=== PATIENT | male | born 1975 | race Caucasian/White ===

== ENCOUNTER 2016-08-20 10:33 | Emergency (ER) | payer SELFPAY ==
[~2016-08-20] VITALS: Ht 175.3 cm; Wt 77.2 kg
[2016-08-20 10:35] VITALS: BP 137/78; PULSE 82; RESP 20; TEMP 98.3; O2SAT 97
[2016-08-20] MEDS ORDERED: MOTR200T4 PO (11:08)
--- NOTE | 2016-08-20 11:08 | PD ---
HPI Chief Complaint: Altered Mental Status Time Seen by Provider: 11:03 Travel History International Travel<30 days: No Contact w/Intl Traveler<30days: No Traveled to known affect area: No History of Present Illness HPI 41-year-old male presents to the ER today because he states that he is from [facility] and is stuck here because his took a truck back, has been walking around and has blisters on his feet. He is here for foot pain bilaterally. He denies any other issues. He states he just wants to get back to [facility]. Modifying Factors: None Associated Signs & Symptoms: Foot blisters, bilateral feet pain Risk Factors: None PFSH Past Medical History Medical other: Yes (traumatic brain injury) Social History Alcohol Use: No Tobacco Use: Yes Substance Use: No Allergies-Medications (Allergen,Severity, Reaction): Coded Allergies: No Known Allergies (Unverified , 08/20/16) Reported Meds & Prescriptions Reported Meds & Active Scripts Active No Active Prescriptions or Reported Medications Review of Systems Except as stated in HPI: all other systems reviewed are Neg Physical Exam Narrative GENERAL: Well-developed middle age white male patient currently in mild distress. Awake and oriented 3. SKIN: Focused skin assessment warm/dry. HEAD: Atraumatic. Normocephalic. EYES: Pupils equal and round. No scleral icterus. No injection or drainage. ENT: No nasal bleeding or discharge. Mucous membranes pink and moist. NECK: Trachea midline. No JVD. CARDIOVASCULAR: Regular rate and rhythm. No murmur appreciated. RESPIRATORY: No accessory muscle use. Clear to auscultation. Breath sounds equal bilaterally. GASTROINTESTINAL: Abdomen soft, non-tender, nondistended. Hepatic and splenic margins not palpable. MUSCULOSKELETAL: No obvious deformities. No clubbing. No cyanosis. No edema. EXTREMITIES: No clubbing, cyanosis, or edema. No joint tenderness, effusion, or edema noted. 1 cm clean base blisters at the fifth toes bilaterally with no surrounding erythema, mild tenderness to palpation. NEUROLOGICAL: Awake and alert. No obvious cranial nerve deficits. Motor grossly within normal limits. Normal speech. PSYCHIATRIC: Mildly agitated mood and affect; insight and judgment normal. Data Data Last Documented VS Vital Signs Date Time Temp Pulse Resp B/P Pulse Ox O2 Delivery O2 Flow Rate FiO2 08/20/16 10:35 98.3 82 20 137/78 97 Room Air Orders Ibuprofen (Motrin) (08/20/16 11:15) MDM Medical Decision Making Medical Screen Exam Complete: Yes Emergency Medical Condition: Yes Medical Record Reviewed: Yes Differential Diagnosis Foot blisters/foot pain Narrative Course There are no signs of infection of these blisters. Patient is oriented, is just agitated that his left him here. This point, my plan would be to release him with additional soft, and ibuprofen. He was provided with a phone call to his . Follow-up as needed for this issue. The plan was discussed with him and he states understanding. Diagnosis Primary Impression: Blister of foot without infection Med/Other Pt SpecificInfo: Prescription(s) given Scripts Ibuprofen (Motrin Ib)200 Mg Xpg001 Mg PO Q6H PRN (PAIN SCALE 1 TO 10) #30 TAB Ref 0 Prov:Jovana Parker MD 08/20/16 Disposition: 01 DISCHARGE HOME Condition: Stable Jovana Parker MD August 20, 2016 11:08
[2016-08-20 11:13] VITALS: BP 128/68; PULSE 72; RESP 16; O2SAT 99
[2016-08-20] MEDS ORDERED: IBUPROFEN 600 MG TAB PO ONE (11:15)
== END 2016-08-20 11:32 | disposition home or self-care (01) ==
LOC: NEPD 10:33
DX: S90.822A Blister (nonthermal), left foot, initial encounter (principal); S90.821A Blister (nonthermal), right foot, initial encounter; X58.XXXA Exposure to other specified factors, initial encounter; Y93.01 Activity, walking, marching and hiking
CPT/HCPCS: 99283

== ENCOUNTER 2017-01-22 20:43 | Emergency (ER) | payer SELFPAY ==
[~2017-01-22] VITALS: Ht 175.3 cm; Wt 76.0 kg
[~2017-01-22 20:43] MED LIST: MOTR200T4 PO
[2017-01-22] MEDS ORDERED: ACETAMINOPHEN/HYDROcodone 325 MG/10 MG TAB PO ONE (21:30)
[2017-01-22] MEDS ORDERED: TETANUS/DIPHTHERIA TOXOID ADULT 0.5 ML VIAL IM ONE (21:30)
[2017-01-22] MEDS ORDERED: BUPIVACAINE HCL PF 0.5% 10 ML VIAL INFIL ONE (21:30)
[2017-01-22] MEDS ORDERED: LIDOCAINE HCL 1% 50 ML VIAL INFIL ONE (21:30)
--- NOTE | 2017-01-22 21:56 | PD ---
HPI Chief Complaint: Injury Time Seen by Provider: 21:28 Travel History International Travel<30 days: No Contact w/Intl Traveler<30days: No Traveled to known affect area: No History of Present Illness HPI 41-year-old male that presents to the ED for evaluation of injury to both of his first digits of both hands. Per patient he was doing laundry and she slipped on wet floor. Patient did not hit his head. Patient try to stop his fall with both of his hands and he injured both of his first digit. Patient has a superficial laceration to the right first digit and states that he cannot completely flex it secondary to pain. Patient also has deformity to the left thumb and he states that he also has inability to flexion. Per patient the one on the left is more severe than the right. He does have a history of previous surgery to the left thumb. This was years ago. He denies any allergies to medication. He is unsure of his last tetanus booster. He denies any other injuries. No back pain or neck pain. No chest pain or shortness of breath. Allergies to medication. Pain per patient is 7 out of 10 this patient on the left thumb. More with movement. Has no known allergies to medication. Injury occurred about an hour before coming to the ED. Came by ambulance. PFSH Past Medical History Medical History: Denies Significant Hx Tetanus Vaccination: < 5 Years Influenza Vaccination: No Past Surgical History Other Surgery: Yes Social History Alcohol Use: No Tobacco Use: Yes Substance Use: No Allergies-Medications (Allergen,Severity, Reaction): Coded Allergies: No Known Allergies (Unverified , 01/22/17) Reported Meds & Prescriptions Reported Meds & Active Scripts Active Bactrim DS (Sulfamethoxazole-Trimethoprim) 800-160 Mg Tab 1 Tab PO BID 5 Days Ibuprofen 800 Mg Tab 800 Mg PO Q8H PRN Lortab (Hydrocodone-Acetaminophen) 5-325 Mg Tab 1 Tab PO Q6H PRN Review of Systems Except as stated in HPI: all other systems reviewed are Neg Physical Exam Narrative GENERAL: SKIN: Warm and dry. HEAD: Atraumatic. Normocephalic. EYES: Pupils equal and round. No scleral icterus. No injection or drainage. ENT: No nasal bleeding or discharge. Mucous membranes pink and moist. Tongue is midline. No uvula deviation. NECK: Trachea midline. No JVD. CARDIOVASCULAR: Regular rate and rhythm. No murmurs, S3, S4. RESPIRATORY: No accessory muscle use. Clear to auscultation. Breath sounds equal bilaterally. GASTROINTESTINAL: Abdomen soft, non-tender, nondistended. Hepatic and splenic margins not palpable. MUSCULOSKELETAL: Extremities without clubbing, cyanosis, or edema. No obvious deformities. Patient has full range of motion of all digits of both upper extremities with exception of the first digits of both hands. Digit on the right hand has superficial laceration/abrasion to the lateral aspect of the digit. About 1 cm. Less than 1 mm deep Patient does have some blood noted. Patient has a hard time abducting the fingers secondary to discomfort but able to do it passively. Patient has obvious deformity to the left thumb around the MIP area. Unclear if this is chronic or new as patient states that some of that is new. He cannot flex it at all. Very tender to touch. Good capillary refill of all digits. Sensation intact bilaterally. NEUROLOGICAL: Awake and alert. No obvious cranial nerve deficits. Motor grossly within normal limits. Five out of 5 muscle strength in the arms and legs. Normal speech. PSYCHIATRIC: Appropriate mood and affect; insight and judgment normal. Data Data Orders Orders Wound Care (01/22/17 21:28) Tetanus/Diphtheria Tox Adult (Tetanus/Di (01/22/17 21:30) Bupivacaine Pf 0.5% Inj (Marcaine Pf 0.5 (01/22/17 21:30) Lidocaine 1% Inj (50 Ml) (Xylocaine 1% I (01/22/17 21:30) Acetamin-Hydrocod 325-10 Mg ([place] 10-32 (01/22/17 21:30) Finger ([id number]) (01/22/17 ) Finger ([id number]) (01/22/17 ) Splint Or Brace Apply/Monitor (01/22/17 22:17) Mandatory Outpatient Referral (01/22/17 22:35) Finger ([id number]) (01/22/17 ) Fiberglass Thumb Spica Adult (01/22/17 ) Fiberglass Thumb Spica Adult (01/22/17 ) MDM Medical Decision Making Medical Screen Exam Complete: Yes Emergency Medical Condition: Yes Medical Record Reviewed: Yes Interpretation(s) Last Impressions Finger X-Ray 01/22/17 0000 Signed Impressions: Service Date/Time: Sunday, January 22, 2017 21:51 - CONCLUSION: Small fracture fragment identified. Vaibhav Joshua MD Finger X-Ray 01/22/17 Signed Impressions: Service Date/Time: Sunday, January 22, 2017 21:56 - CONCLUSION: Dislocation of the first digit at the MCP joint. Vaibhav Joshua MD Last Impressions Finger X-Ray 01/22/17 Signed Impressions: Service Date/Time: Sunday, January 22, 2017 22:39 - CONCLUSION: Mild residual subluxation post reduction Paolo Russell MD Finger X-Ray 01/22/17 Signed Impressions: Service Date/Time: Sunday, January 22, 2017 21:51 - CONCLUSION: Small fracture fragment identified. Vaibhav Joshua MD Finger X-Ray 01/22/17 Signed Impressions: Service Date/Time: Sunday, January 22, 2017 21:56 - CONCLUSION: Dislocation of the first digit at the MCP joint. Vaibhav Joshua MD Differential Diagnosis Laceration versus fracture versus dislocation versus contusion versus tendon injury Narrative Course 41-year-old male that presents to the ED for evaluation of injuries to both first digits of the hands. Patient was properly examined and was found to have signs and symptoms concerning for fracture versus dislocation versus tendon injury. Imaging and medications were ordered. X-rays show dislocation of the left thumb as well as fracture of the right thumb. This was discussed with my attending Dr. Fleming who was made aware of findings and agrees with plan and discharge for outpatient follow up with hand surgeon. Patient will be put in splint some both fingers. After splint proceeded to the patient and she agreed to it reduction of the dislocation of the left thumb was attempted by me. After properly sterilizing the area resolution of 5 mL of 0.5% bupivacaine as well as one percent lidocaine was applied to the left first digit to anesthetize the area. Patient had complete resolution of pain on the left thumb. Using backwards traction finger was placed back to normal. Patient was splinted. Patient tolerated procedure well. Patient was found to be neurovascular intact before and after the procedure. Reduction x-ray was done and show reduction with mild subluxation, this was discussed with my attending Dr Fleming who reviewed the films and recommends follow up outpatient, he declines pushing on the finger any more. Patient was given mandatory referral to Dr. Hernandez for hand surgery as he has fracture and dislocation to both his first digits of both hands. Patient will be given prescription for antibiotic as well as pain medication. He was told that if anything worsens she is to come back to the ED. Follow up with PCP. See ED if worsening symptoms. Diagnosis Primary Impression: Closed dislocation of left thumb Qualified Codes: S63.105A - Unspecified dislocation of left thumb, initial encounter Additional Impressions: Fracture of thumb Qualified Codes: S62.514A - Nondisplaced fracture of proximal phalanx of right thumb, initial encounter for closed fracture Abrasion Patient Instructions: General Instructions, Narcotic given in the ED Additional Instructions: Take medications as prescribed. Follow-up with hand surgeon, make sure to keep your phone with you so we can call you to make an appointment with hand surgeon. See ED for any worsening symptoms. Do not drink or drive while taking pain medication. Apply ice or heat as needed for pain Med/Other Pt SpecificInfo: Prescription(s) given Scripts Sulfamethoxazole-Trimethoprim (Bactrim DS) 800-160 Mg Tab 1 TAB PO BID for Infection for 5 Days, #10 TAB 0 Refills Prov: Mariano Fleming MD 01/22/17 Ibuprofen (Ibuprofen) 800 Mg Tab 800 MG PO Q8H Y for PAIN SCALE 1 TO 10, #20 TAB 0 Refills Prov: Mariano Fleming MD 01/22/17 Hydrocodone-Acetaminophen (Lortab) 5-325 Mg Tab 1 TAB PO Q6H Y for PAIN, #15 TAB 0 Refills Prov: Mariano Fleming MD 01/22/17 Disposition: 01 DISCHARGE HOME Condition: Huan Alfredo Jan 22, 2017 21:56
--- NOTE | 2017-01-22 22:19 | RADRPT ---
EXAM DATE/TIME: 01/22/2017 21:51 [facility] COMPARISON: No previous studies available for comparison. INDICATIONS : Right hand pain post fall MEDICAL HISTORY : None. SURGICAL HISTORY : None. ENCOUNTER: Initial ACUITY: 1 day PAIN SCORE: 10/10 LOCATION: Right Thumb FINDINGS: Bone density is normal. Joint space widths are intact. There is a sliver-like ossific fragment adjace nt to the head of the first metacarpal are identified. This may represent a fracture of the sesamoid or chipped fragment off the head of the first metacarpal. CONCLUSION: Small fracture fragment identified. Vaibhav Joshua MD on January 22, 2017 at 22:17 Board Certified Radiologist. This report was verified electronically.
--- NOTE | 2017-01-22 22:21 | RADRPT ---
EXAM DATE/TIME: 01/22/2017 21:56 [facility] COMPARISON: No previous studies available for comparison. INDICATIONS : Patient fell complains of pain left thumb. MEDICAL HISTORY : None. SURGICAL HISTORY : None. ENCOUNTER: Initial ACUITY: 1 day PAIN SCORE: 10/10 LOCATION: Left thumb FINDINGS: There is a dislocation of the first digit at the level of the first metacarpal phalangeal joint. No o bvious fracture fragment is not seen. CONCLUSION: Dislocation of the first digit at the MCP joint. Vaibhav Joshua MD on January 22, 2017 at 22:19 Board Certified Radiologist. This report was verified electronically.
[2017-01-22] MEDS ORDERED: BACT800T5 PO (22:43)
[2017-01-22] MEDS ORDERED: IBUP800T23 PO (22:43)
[2017-01-22] MEDS ORDERED: HYDR-3533 PO (22:43)
--- NOTE | 2017-01-22 22:56 | RADRPT ---
EXAM DATE/TIME: 01/22/2017 22:39 [facility] COMPARISON: FINGER LEFT 1ST DIGIT ([id number]), January 22, 2017, 21:56. INDICATIONS : Post reduction from dislocation. MEDICAL HISTORY : None. SURGICAL HISTORY : None. ENCOUNTER: Initial ACUITY: 1 day PAIN SCORE: 4/10 LOCATION: Left hand, first digit. FINDINGS: Thumb metacarpal phalangeal dislocation has been reduced with some residual palmar subluxation of the proximal phalanx relative to the metacarpal. Bony detail is obscured by splint material CONCLUSION: Mild residual subluxation post reduction Paolo Russell MD on January 22, 2017 at 22:53 Board Certified Radiologist. This report was verified electronically.
== END 2017-01-22 23:25 | disposition home or self-care (01) ==
LOC: NEPE 20:43
DX: S63.105A Unspecified dislocation of left thumb, initial encounter (principal); S62.514A Nondisplaced fracture of proximal phalanx of right thumb, initial encounter for closed fracture; W01.0XXA Fall on same level from slipping, tripping and stumbling without subsequent striking against object, initial encounter; Y93.E2 Activity, laundry; Z23 Encounter for immunization
CPT/HCPCS: 26725; 73140; 90471; 90714; 99284; L3808